=== PATIENT | male | born 1975 | race Caucasian/White ===

== ENCOUNTER → 2019-10-04 | Outpatient (CLI) | payer BC ==
--- NOTE | 2019-10-04 20:01 | Diagnostic Imaging Report ---
EXAMINATION: Head CT without contrast. HISTORY:Repeated fall, trauma last week. COMPARISON:None. TECHNIQUE: Multidetector axial images were obtained from the foramen magnum to the vertex without contrast. The images were reconstructed using brain and bone algorithms. Thin section brain images were reformatted into coronal and sagittal planes. Dose modulation, iterative reconstruction, and/or weight based adjustment of the mA/kV was utilized to reduce the radiation dose to as low as reasonably achievable. Intravenous contrast: None IMAGE QUALITY: Acceptable. FINDINGS: Skull/scalp: No lytic or blastic. lesions. No surgical changes. Parenchyma: Focal hypodensity in the inferior and posterior aspect of right lentiform nucleus represents old lacunar infarct or prominent perivascular space. No acute hemorrhage, mass or acute major vascular territorial infarct. Arteries: No density suggestive of thrombosis. Dural sinuses: No abnormal density suggestive of thrombosis. Ventricles: No hydrocephalus or displacement. Extra-axial spaces: No abnormal density. Brain volume: Normal for age. Craniocervical junction: No mass, Chiari malformation, or basilar invagination. Sella: No mass. Paranasal/mastoid sinuses: Imaged portions unremarkable. IMPRESSION: No acute intracranial abnormality. Signed by: Dr. Yelena Jaime M.D. on 10/04/2019 7:57 PM
== END ==
LOC: CT 16:44
PROVIDERS: ATTEND Internal Medicine
DX: S09.90XA Unspecified injury of head, initial encounter (principal); R29.6 Repeated falls
CPT/HCPCS: 70450

== ENCOUNTER 2020-07-03 17:00 | Outpatient (RCR) | payer BC | END 2020-07-17 | LOC: PT 17:00 | PROVIDERS: ATTEND Internal Medicine | DX: M25.671 Stiffness of right ankle, not elsewhere classified (principal); M25.672 Stiffness of left ankle, not elsewhere classified; R26.9 Unspecified abnormalities of gait and mobility; R29.6 Repeated falls; M62.81 Muscle weakness (generalized) ==